=== PATIENT | female | born 1955 | race Two or more races ===

== ENCOUNTER 2021-03-15 11:02 | Emergency (ER) | payer OTHER ==
[~2021-03-15] VITALS: Ht 160 cm; Wt 63.5 kg
[2021-03-15] MEDS ORDERED: SYNTHROID125 MCG (11:13)
[2021-03-15] MEDS ORDERED: KETO10TA2 PO (14:16)
== END 2021-03-15 14:19 | disposition home or self-care (01) ==
LOC: ER 11:02
DX: S90.31XA Contusion of right foot, initial encounter (principal); M25.571 Pain in right ankle and joints of right foot; W22.8XXA Striking against or struck by other objects, initial encounter; Y93.F2 Activity, caregiving, lifting; Y92.018 Other place in single-family (private) house as the place of occurrence of the external cause; Y99.8 Other external cause status

== ENCOUNTER 2025-03-26 08:21 | Outpatient (CLI) | payer OTHER ==
[~2025-03-26 08:21] MED LIST: CELEBREX200MG; DOXYCYCLINE HYC50 MG; FOLGARD TABLET1 EACH; GABAPENTIN300 M2 PO; KETO10TA2 PO; MUPIROCIN22 GM; NABUMETONE750 MG PO; PEPCID20 MG; PNEU16DI2; SYNTHROID112 MCG; SYNTHROID125 MCG
== END 2025-03-26 08:23 | disposition home or self-care (01) ==
LOC: SONOGRAMA 08:21
PROVIDERS: ATTEND Internal Medicine Gastroenterology
DX: R10.9 Unspecified abdominal pain (principal)

== ENCOUNTER → 2025-10-09 | Emergency (ER) | payer OTHER | END | disposition left against medical advice (07) | LOC: ER 12:42 | DX: Z53.21 Procedure and treatment not carried out due to patient leaving prior to being seen by health care provider (principal) ==